=== PATIENT | male | born 1965 | race Two or more races ===

== ENCOUNTER 2017-02-21 09:33 | Inpatient (IN) | payer OTHER ==
[2017-02-21 11:07] VITALS: BMI 20.5
--- NOTE | 2017-02-21 13:32 | HP ---
COWS - Scale Resting Pulse: 0= [place] 80 or Below Sweatin= Chills/Flushing Restless Observation: 1= Difficult to Sit Still Pupil Size: 1= Pupils >than Normal Bone or Joint Aches: 1= Mild Discomfort Runny Nose/ Eye Tearin= Runny Nose/Eyes GI Upset > 30mins: 2= Nausea/Diarrhea Tremor Observation: 2= Slight Tremor Visible Yawning Observation: 1= 1-2x During Session Anxiety or Irritability: 2=Irritable/Anxious Goose Flesh Skin: 0=Smooth Skin COWS Score: 13 CIWA Score - CIWA Score Nausea/Vomitin Muscle Tremors: 3 Anxiety: 4-Mod. Anxious/Guarded Agitation: 4-Moderately Restless Paroxysmal Sweats: 3 Orientation: 0-Oriented Tacttile Disturbances: 2-Mild Itch/Numbness/Burn Auditory Disturbances: 0-None Visual Disturbances: 0-None Headache: 3-Moderate CIWA-Ar Total Score: 21 Admission ROS BHS - HPI Chief Complaint: "I asm looking to clean my system and quit using drugs." Pt. is here to detox from Alcohol and Heroin. Allergies/Adverse Reactions: Allergies Allergy/AdvReac Type Severity Reaction Status Date / Time No Known Allergies Allergy Verified 02/21/17 12:50 History of Present Illness: Pt. is a 51 YO male here to Detox from alcohol and Heroin. Pt. has had 1 previous Detox admission at [facility] in the past. Pt. also uses Cocaine, Marijuana, and Xanax on a daily basis. Exam Limitations: No Limitations - Ebola screening Have you traveled outside of the country in the last 21 days: No Have you had contact with anyone from an Ebola affected area: No Have you been sick,other than usual withdrawal symptoms: No Do you have a fever: No - Review of Systems Constitutional: Chills, Diaphoresis, Fever, Loss of Appetite, Malaise, Night Sweats, Unintentional Wgt. Loss (Lost approx. 25 lbs. over the 2-3 months.) EENT: reports: Nose Congestion, Sinus Pressure, Other (Upper Denture.) Respiratory: reports: Cough, SOB with Exertion Cardiac: reports: No Symptoms Reported GI: reports: Nausea, Poor Appetite : reports: No Symptoms Reported Musculoskeletal: reports: Back Pain, Joint Pain, Joint Stiffness Integumentary: reports: No Symptoms Reported Neuro: reports: Headache, Tremors Endocrine: reports: No Symptoms Reported Hematology: reports: No Symptoms Reported Psychiatric: reports: Judgement Intact, Mood/Affect Appropiate, Orientated x3, Anxious, Depressed Other Systems: Reviewed and Negative Patient History - Patient Medical History Hx Anemia: No Hx Asthma: Yes (Pt is on MDI) Hx Chronic Obstructive Pulmonary Disease (COPD): No Hx Cancer: No Hx Cardiac Disorders: No Hx Congestive Heart Failure: No Hx Hypertension: No Hx Hypercholesterolemia: No Hx Pacemaker: No HX Cerebrovascular Accident: No Hx Seizures: No Hx Dementia: No Hx Diabetes: No Hx Gastrointestinal Disorders: No Hx Liver Disease: Yes (Hep C (Treated, approx. 2 years ago).) Hx Genitourinary Disorders: No Hx Sexually Transmitted Disorders: No Hx Renal Disease (ESRD): No Hx Thyroid Disease: No Hx Human Immunodeficiency Virus (HIV): No (Last Tested: within Last 6 months: NEGATIVE.) Hx Hepatitis C: Yes (Treated, Resoloved.) Hx Depression: Yes (On meds.) Hx Suicide Attempt: Yes (1994. PATIENT DENIES CURRENT SI / HI.) Hx Bipolar Disorder: No Hx Schizophrenia: Yes (Paranoid Type; On meds.) - Patient Surgical History Past Surgical History: No - PPD History Previous Implant?: Yes Documented Results: Negative w/o proof Implanted On Prior [facility] Admission?: No PPD to be Administered?: Yes - Reproductive History Patient is a Female of Child Bearing Age (11 -55 yrs old): No (PATIENT IS MALE.) - Smoking Cessation Smoking history: Current every day smoker Have you smoked in the past 12 months: Yes Aproximately how many cigarettes per day: 20 Cigars Per Day: 0 Hx Chewing Tobacco Use: No Initiated information on smoking cessation: Yes 'Breaking Loose' booklet given: 02/21/17 (GIVEN ON UNIT.) - Substance & Tx. History Hx Alcohol Use: Yes Hx Substance Use: Yes Substance Use Type: Alcohol, Cocaine, Heroin, Marijuana, Tranquilizers Hx Substance Use Treatment: Yes (1 Previous Detox Admission at [facility].) - Substances Abused Alprazolam (Xanax) Route: Oral Frequency: Daily Amount used: 6mg Age of first use: 25 Date of Last Use: 02/20/17 Alcohol Route: Oral Frequency: Daily Amount used: 3 qts beer Age of first use: 14 Date of Last Use: 02/20/17 Cocaine Route: Inhalation Frequency: Daily Amount used: $20 Age of first use: 18 Date of Last Use: 02/20/17 Marijuana/Hashish Route: Smoking Frequency: Daily Amount used: 1 bag Age of first use: 14 Date of Last Use: 02/20/17 Heroin Route: Inhalation Frequency: Daily Amount used: 1-3 Bags. Age of first use: 15 Date of Last Use: 02/21/17 Family Disease History - Family Disease History Family Disease History: Heart Disease: Father (: [place]: Mother ( .) Admission Physical Exam [facility] - Vital Signs Vital Signs: Vital Signs - 24 hr 02/21/17 10:55 Temperature 97.8 F Pulse Rate 62 Respiratory 18 Rate Blood Pressure 134/71 - Physical General Appearance: Yes: Nourished, Appropriately Dressed, Mild Distress, Tremorous, Anxious HEENTM: Yes: Hearing grossly Normal, Normocephalic, Normal Voice, YULISA, Pharynx Normal Respiratory: Yes: Chest Non-Tender, No Respiratory Distress, Wheezing Neck: Yes: No masses,lesions,Nodules, Supple, Trachea in good position Breast: Yes: Breast Exam Deferred Cardiology: Yes: Regular Rhythm, Regular Rate, S1, S2 Abdominal: Yes: Normal Bowel Sounds, Non Tender, Flat, Soft Genitourinary: Yes: Within Normal Limits Back: Yes: Decreased Range of Motion Musculoskeletal: Yes: Gait Steady, Joint Stiffness Extremities: Yes: Tremors Neurological: Yes: Fully Oriented, Alert, Normal Mood/Affect, Normal Response Integumentary: Yes: Normal Color, Dry, Warm Lymphatic: Yes: Within Normal Limits - Diagnostic (1) Alcohol dependence with uncomplicated withdrawal Current Visit: Yes Status: Acute (2) Opioid dependence with withdrawal Current Visit: Yes Status: Acute (3) Sedative, hypnotic or anxiolytic dependence with withdrawal, uncomplicated Current Visit: Yes Status: Acute (4) Cocaine dependence, uncomplicated Current Visit: Yes Status: Acute (5) Nicotine dependence Current Visit: Yes Status: Chronic Qualifiers: Nicotine product type: cigarettes Substance use status: uncomplicated Qualified Code(s): F17.210 - Nicotine dependence, cigarettes, uncomplicated (6) Asthma Current Visit: Yes Status: Chronic Qualifiers: Asthma severity: mild intermittent (7) Methadone maintenance therapy patient Current Visit: Yes Status: Chronic (8) Schizophrenia, paranoid type Current Visit: Yes Status: Chronic Cleared for Admission B[facility] - Detox or Rehab [facility] Level of Care: Medically Managed (ADVISED PATIENT TO FOLLOW-UP WITH EARLY CHILDHOOD / REHAB MEDICAL PROVIDER AFTER DISCAHRGE FROM DETOX FOR GENERAL MEDICAL ASSESSMENT.) Detox Regimen/Protocol: Methadone/Librium BHS Breath Alcohol Content Breath Alcohol Content: 0 Urine Drug Screen - Results Drug Screen Negative: No Urine Drug Screen Results: THC-Marijuana, MANDY-Cocaine, OPI-Opiates, BZO- Benzodiazepines, MTD-Methadone, TCA-Tricyclic Antidepress
[2017-02-21] MEDS ORDERED: IBUPROFEN 400 MG TABLET (FP) PO PRN (14:08)
[2017-02-21] MEDS ORDERED: LOPERAMIDE HCL 2 MG CAPSULE PO PRN (14:08)
[2017-02-21] MEDS ORDERED: guaiFENesin/D-METHORPHAN HB 10 ML UNIT-DOSE CUPS PO PRN (14:08)
[2017-02-21] MEDS ORDERED: P-EPHED 60MG/TRIPROLIDI 2.5MG TABLET PO PRN (14:08)
[2017-02-21] MEDS ORDERED: MAGNESIUM HYDROX 2400MG/30ML ORAL SUSPENSION 30 ML CUP PO PRN (14:08)
[2017-02-21] MEDS ORDERED: chlordiazePOXIDE HCL 25 MG CAPSULE PO PRN (14:08)
[2017-02-21] MEDS ORDERED: ACETAMINOPHEN 325 MG TABLET (FP) PO PRN (14:08)
[2017-02-21] MEDS ORDERED: MENTHOL/PHENOL 1 EACH UD MM PRN (14:08)
[2017-02-21] MEDS ORDERED: hydrOXYzine PAMOATE 50 MG CAPSULE (FP) PO PRN (14:08)
[2017-02-21] MEDS ORDERED: MAGNESIUM CITRATE 300 ML BOTTLE PO PRN (14:08)
[2017-02-21] MEDS ORDERED: MAG HYDROX/AL HYDROX/SIMETH 30 ML UNIT-DOSE CUP PO PRN (14:08)
[2017-02-21] MEDS ORDERED: NICOTINE POLACRILEX 2 MG GUM BUC PRN (14:08)
[2017-02-21] MEDS ORDERED: ALBUTEROL SO4 6.7 GM HFA INHALER IH PRN (14:15)
[2017-02-21] MEDS ORDERED: chlordiazePOXIDE HCL 25 MG CAPSULE PO ONE (14:16)
[2017-02-21] MEDS: NICOTINE 21 MG/24 HOURS TOPICAL PATCH TD SCH (14:52)
[2017-02-21] MEDS: chlordiazePOXIDE HCL 25 MG CAPSULE PO SCH ×2 (17:08→22:22)
--- NOTE | 2017-02-21 18:08 | CONSULT ---
[facility] Psychiatric Consult - Data Date of interview: 02/21/17 Admission source: [facility] Identifying data: Readmission to [facility] for this 51 y/o reyes seeking detox treatment for alcohol,heroin,marihuana,xanax and cocaine dependence.Patient is without children,domiciled,unemployed and supported on SSI benefits. Substance Abuse History: - Smoking Cessation. Smoking history: Current every day smoker. Have you smoked in the past 12 months: Yes. Aproximately how many cigarettes per day: 20. Cigars Per Day: 0. Hx Chewing Tobacco Use: No. Initiated information on smoking cessation: Yes. 'Breaking Loose' booklet given : 02/21/17 (GIVEN ON UNIT.). - Substance & Tx. History. Hx Alcohol Use: Yes. Hx Substance Use: Yes. Substance Use Type: Alcohol, Cocaine, Heroin, Marijuana , Tranquilizers. Hx Substance Use Treatment: Yes (1 Previous Detox Admission at [facility].). - Substances Abused. Alprazolam (Xanax). Route: Oral. Frequency: Daily. Amount used: 6mg. Age of first use: 25. Date of Last Use: 02/20/17. Alcohol. Route: Oral. Frequency: Daily. Amount used: 3 qts beer. Age of first use: 14. Date of Last Use: 02/20/17. Cocaine. Route: Inhalation. Frequency: Daily. Amount used: $20. Age of first use: 18. Date of Last Use: 02/20/17. Marijuana/Hashish. Route: Smoking. Frequency: Daily. Amount used: 1 bag. Age of first use: 14. Date of Last Use: 02/20/17. Heroin. Route: Inhalation. Frequency: Daily. Amount used: 1-3 Bags. Age of first use: 15. Date of Last Use: 02/21/17. Confirmed by patient. Medical History: Hepatitis C,bronchial asthma and hypertension. Psychiatric History: Patient admits to a history of multiple psychiatric hospitalizations.Known to [facility] and [facility].Diagnosed with Paranoid Schizophrenia.Mr Wolfe gets his OPD care at the [facility] health clinic in the [place].Medications consist of seroquel 200 mg/ hs + lexapro 10 mg/day.Patient is also on methadone maintenance (160 mg/day) at [facility].He reports a remote history of suicide attempt via deliberate ingestion of a foreign object (container of an asthma inhaler) during incarceration a few years ago. Physical/Sexual Abuse/Trauma History: Patient denies. Additional Comment: Urine Drug Screen Results: THC-Marijuana, MANDY-Cocaine, OPI- Opiates, BZO-Benzodiazepines, MTD-Methadone, TCA-Tricyclic Antidepressant.Noted. Mental Status Exam - Mental Status Exam Alert and Oriented to: Time, Place, Person Cognitive Function: Good Patient Appearance: Well Groomed Mood: Hopeful, Euthymic Affect: Appropriate, Normal Range Patient Behavior: Appropriate, Cooperative (friendly) Speech Pattern: Clear, Appropriate Voice Loudness: Normal Thought Process: Goal Oriented Thought Disorder: Not Present Hallucinations: Denies Suicidal Ideation: Denies Homicidal Ideation: Denies Insight/Judgement: Poor Sleep: Poorly, Difficulty falling asleep Appetite: Good Muscle strength/Tone: Normal Gait/Station: Normal Psychiatric Findings - Problem List ([place] 1, 2,3) (1) Alcohol dependence with uncomplicated withdrawal Current Visit: Yes Status: Acute (2) Cocaine dependence, uncomplicated Current Visit: Yes Status: Acute (3) Opioid dependence with withdrawal Current Visit: Yes Status: Acute (4) Sedative, hypnotic or anxiolytic dependence with withdrawal, uncomplicated Current Visit: Yes Status: Acute (5) Methadone maintenance therapy patient Current Visit: Yes Status: Acute (6) Nicotine dependence Current Visit: Yes Status: Acute Qualifiers: Nicotine product type: cigarettes Substance use status: uncomplicated Qualified Code(s): F17.210 - Nicotine dependence, cigarettes, uncomplicated (7) Schizophrenia, paranoid type Current Visit: Yes Status: Chronic (8) Asthma Current Visit: Yes Status: Chronic Qualifiers: Asthma severity: mild intermittent (9) Insomnia Current Visit: Yes Status: Acute - Initial Treatment Plan Initial Treatment Plan: Psychoeducation.Detoxification.Medications : seroquel 200 mg po hs + lexapro 10 mg po daily.Side effects/benefits discussed with the patient.He agrees with this plan of care.Observation.
[2017-02-21 20:02] LABS: URINE APPEARANCE CLEAR; URINE BILIRUBIN NEGATIVE (NEGATIVE); URINE BLOOD NEGATIVE (NEGATIVE); URINE COLOR YELLOW; URINE GLUCOSE (UA) NEGATIVE (NEGATIVE); URINE KETONE TRACE (NEGATIVE); URINE LEUK ESTERASE NEGATIVE (NEGATIVE); URINE NITRITE NEGATIVE (NEGATIVE); URINE PROTEIN NEGATIVE (NEGATIVE); URINE UROBILINOGEN NEGATIVE E.U./dl (0.2-1.0)
--- NOTE | 2017-02-21 20:50 | PN ---
BHS Progress Note Note: RECEIVED NURSE INFORMED REQUESTS ENSURE BMI 20.5 ENSURE 120 ML BID CONTINUE DETOX
[2017-02-21] MEDS ORDERED: QUEtiapine FUMARATE 200 MG TABLET PO SCH (22:00)
[2017-02-21] MEDS: THIAMINE HCL 100 MG TABLET (FP) PO SCH (22:22)
[2017-02-22] MEDS: chlordiazePOXIDE HCL 25 MG CAPSULE PO SCH ×4 (05:26→22:26)
[2017-02-22] MEDS: METHADONE HCL 40 MG DISPERSABLE TABLET PO SCH (05:26)
[2017-02-22] MEDS: ESCITALOPRAM OXALATE 10 MG TABLET (FP) PO SCH (10:28)
[2017-02-22] MEDS: NICOTINE 21 MG/24 HOURS TOPICAL PATCH TD SCH (10:28)
[2017-02-22] MEDS: PRENATAL VITAMINS W/ FOLIC ACID TABLET (FP) PO SCH (10:28)
[2017-02-22 10:33] LABS: MCH 28.8 pg (25.7-33.7); MCHC 32.1 g/dl (32.0-35.9); MEAN CELL VOLUME 89.5 fl (80-96); MEAN PLT VOLUME 9.7 fl (7.5-11.1); PLATELET COUNT 168 K/MM3 (134-434); RDW 14.3 % (11.9-15.9); WHITE BLOOD COUNT 6.4 K/mm3 (4.0-10.0)
[2017-02-22 11:03] LABS: ALK PHOS 52 U/L (45-117); ANION GAP 6 (8-16); BILIRUBIN,TOTAL 0.2 mg/dL (0.2-1.0); CO2 31 mmol/L (21-32); GLUCOSE,RANDOM 117 mg/dL (74-106); SGOT/AST 25 U/L (15-37); SGPT/ALT 17 U/L (12-78); TOT PROT 7.7 g/dl (6.4-8.2)
--- NOTE | 2017-02-22 13:36 | PN ---
S CIWA - CIWA Score Nausea/Vomitin-No Nausea/No Vomiting Muscle Tremors: 4-Moderate,w/Arms Extend Anxiety: 3 Agitation: 4-Moderately Restless Paroxysmal Sweats: 3 Orientation: 0-Oriented Tacttile Disturbances: 0-None Auditory Disturbances: 0-None Visual Disturbances: 0-None Headache: 0-None Present CIWA-Ar Total Score: 14 BHS Progress Note (SOAP) Subjective: Anxiety,tremors,sweating,interrupted sleep,restless Objective: 02/22/17 13:35 Vital Signs - 8 hr 02/22/17 02/22/17 06:19 09:28 Temperature 95.7 F L 98.2 F Pulse Rate 57 L 76 Respiratory 16 18 Rate Blood Pressure 91/59 93/56 Laboratory Tests 02/21/17 02/22/17 02/22/17 19:45 06:20 06:20 WBC 6.4 RBC 3.98 L Hgb 11.4 L Hct 35.6 MCV 89.5 MCHC 32.1 RDW 14.3 Plt Count 168 MPV 9.7 Sodium 139 Potassium 4.1 Chloride 102 Carbon Dioxide 31 Anion Gap 6 L BUN 16 Creatinine 1.0 Creat Clearance w eGFR > 60 Random Glucose 117 H Calcium 9.0 Total Bilirubin 0.2 AST 25 ALT 17 Alkaline Phosphatase 52 Total Protein 7.7 Albumin 4.0 Urine Color Yellow Urine Appearance Clear Urine pH 5.0 Ur Specific [place] 1.024 Urine Protein Negative Urine Glucose (UA) Negative Urine Ketones Trace H Urine Blood Negative Urine Nitrite Negative Urine Bilirubin Negative Urine Urobilinogen Negative Ur Leukocyte Esterase Negative labs noted Assessment: 02/22/17 13:35 Withdrawal sx. Plan: Continue detox
[2017-02-22] MEDS: THIAMINE HCL 100 MG TABLET (FP) PO SCH (22:26)
[2017-02-23] MEDS: METHADONE HCL 40 MG DISPERSABLE TABLET PO SCH (05:18)
[2017-02-23] MEDS: chlordiazePOXIDE HCL 25 MG CAPSULE PO SCH ×2 (05:18→10:19)
[2017-02-23] MEDS: PRENATAL VITAMINS W/ FOLIC ACID TABLET (FP) PO SCH (10:17)
[2017-02-23] MEDS: NICOTINE 21 MG/24 HOURS TOPICAL PATCH TD SCH (10:17)
[2017-02-23] MEDS: ESCITALOPRAM OXALATE 10 MG TABLET (FP) PO SCH (10:17)
--- NOTE | 2017-02-23 11:06 | PN ---
S CIWA - CIWA Score Nausea/Vomitin-No Nausea/No Vomiting Muscle Tremors: 3 Anxiety: 4-Mod. Anxious/Guarded Agitation: 4-Moderately Restless Paroxysmal Sweats: 3 Orientation: 0-Oriented Tacttile Disturbances: 0-None Auditory Disturbances: 0-None Visual Disturbances: 0-None Headache: 0-None Present CIWA-Ar Total Score: 14 BHS Progress Note (SOAP) Subjective: Anxiety,tremors,sweating,interrupted sleep,restless Objective: 02/23/17 11:05 Vital Signs - 8 hr 02/23/17 02/23/17 06:24 09:35 Temperature 95.8 F L 98.2 F Pulse Rate 59 L 68 Respiratory 16 16 Rate Blood Pressure 98/60 99/60 Laboratory Tests 02/21/17 02/22/17 02/22/17 19:45 06:20 06:20 WBC 6.4 RBC 3.98 L Hgb 11.4 L Hct 35.6 MCV 89.5 MCHC 32.1 RDW 14.3 Plt Count 168 MPV 9.7 Sodium 139 Potassium 4.1 Chloride 102 Carbon Dioxide 31 Anion Gap 6 L BUN 16 Creatinine 1.0 Creat Clearance w eGFR > 60 Random Glucose 117 H Calcium 9.0 Total Bilirubin 0.2 AST 25 ALT 17 Alkaline Phosphatase 52 Total Protein 7.7 Albumin 4.0 Urine Color Yellow Urine Appearance Clear Urine pH 5.0 Ur Specific [place] 1.024 Urine Protein Negative Urine Glucose (UA) Negative Urine Ketones Trace H Urine Blood Negative Urine Nitrite Negative Urine Bilirubin Negative Urine Urobilinogen Negative Ur Leukocyte Esterase Negative RPR Titer 02/22/17 06:20 WBC RBC Hgb Hct MCV MCHC RDW Plt Count MPV Sodium Potassium Chloride Carbon Dioxide Anion Gap BUN Creatinine Creat Clearance w eGFR Random Glucose Calcium Total Bilirubin AST ALT Alkaline Phosphatase Total Protein Albumin Urine Color Urine Appearance Urine pH Ur Specific [place] Urine Protein Urine Glucose (UA) Urine Ketones Urine Blood Urine Nitrite Urine Bilirubin Urine Urobilinogen Ur Leukocyte Esterase RPR Titer Nonreactive labs noted Assessment: 02/23/17 11:05 Withdrawal sx. Plan: Continue detox
[2017-02-23] MEDS: chlordiazePOXIDE 5 MG CAPSULE PO SCH ×2 (17:23→22:22)
[2017-02-23] MEDS: THIAMINE HCL 100 MG TABLET (FP) PO SCH (22:22)
[2017-02-23] MEDS: diphenhydrAMINE HCL 50 MG CAPSULE PO PRN (22:23)
[2017-02-24] MEDS: chlordiazePOXIDE 5 MG CAPSULE PO SCH ×2 (04:57→10:13)
[2017-02-24] MEDS: METHADONE HCL 40 MG DISPERSABLE TABLET PO SCH (05:00)
[2017-02-24] MEDS: PRENATAL VITAMINS W/ FOLIC ACID TABLET (FP) PO SCH (10:12)
[2017-02-24] MEDS: ESCITALOPRAM OXALATE 10 MG TABLET (FP) PO SCH (10:12)
[2017-02-24] MEDS: NICOTINE 21 MG/24 HOURS TOPICAL PATCH TD SCH (10:13)
--- NOTE | 2017-02-24 12:43 | EKG ---
Test Reason : Blood Pressure : / mmHG Vent. Rate : 062 BPM Atrial Rate : 062 BPM P-R Int : 192 ms QRS Dur : 100 ms QT Int : 432 ms P-R-T Axes : 068 070 062 degrees QTc Int : 438 ms NORMAL SINUS RHYTHM NORMAL ECG NO PREVIOUS ECGS AVAILABLE Confirmed by SHA MONTILLA MD ([id number]) on 02/24/2017 12:42:53 PM Referred By: Confirmed By:SHA MONTILLA MD
--- NOTE | 2017-02-24 13:27 | PN ---
BHS Progress Note (SOAP) Subjective: Sweating,interrupted sleep,restless Objective: 02/24/17 13:26 Vital Signs - 8 hr 02/24/17 02/24/17 06:13 10:24 Temperature 97.7 F 98.2 F Pulse Rate 62 69 Respiratory 18 18 Rate Blood Pressure 98/60 116/63 Laboratory Last Values WBC 6.4 K/mm3 (4.0-10.0) 02/22/17 06:20 RBC 3.98 M/mm3 (4.00-5.60) L 02/22/17 06:20 Hgb 11.4 GM/dL (11.7-16.9) L 02/22/17 06:20 Hct 35.6 % (35.4-49) 02/22/17 06:20 MCV 89.5 fl (80-96) 02/22/17 06:20 MCHC 32.1 g/dl (32.0-35.9) 02/22/17 06:20 RDW 14.3 % (11.9-15.9) 02/22/17 06:20 Plt Count 168 K/MM3 (134-434) 02/22/17 06:20 MPV 9.7 fl (7.5-11.1) 02/22/17 06:20 Sodium 139 mmol/L (136-145) 02/22/17 06:20 Potassium 4.1 mmol/L (3.5-5.1) 02/22/17 06:20 Chloride 102 mmol/L (98-107) 02/22/17 06:20 Carbon Dioxide 31 mmol/L (21-32) 02/22/17 06:20 Anion Gap 6 (8-16) L 02/22/17 06:20 BUN 16 mg/dL (7-18) 02/22/17 06:20 Creatinine 1.0 mg/dL (0.7-1.3) 02/22/17 06:20 Creat Clearance w eGFR > 60 (>60) 02/22/17 06:20 Random Glucose 117 mg/dL (74-106) H 02/22/17 06:20 Calcium 9.0 mg/dL (8.5-10.1) 02/22/17 06:20 Total Bilirubin 0.2 mg/dL (0.2-1.0) 02/22/17 06:20 AST 25 U/L (15-37) 02/22/17 06:20 ALT 17 U/L (12-78) 02/22/17 06:20 Alkaline Phosphatase 52 U/L (45-117) 02/22/17 06:20 Total Protein 7.7 g/dl (6.4-8.2) 02/22/17 06:20 Albumin 4.0 g/dl (3.4-5.0) 02/22/17 06:20 Urine Color Yellow 02/21/17 19:45 Urine Appearance Clear 02/21/17 19:45 Urine pH 5.0 (5.0-8.0) 02/21/17 19:45 Ur Specific [place] 1.024 (1.001-1.035) 02/21/17 19:45 Urine Protein Negative (NEGATIVE) 02/21/17 19:45 Urine Glucose (UA) Negative (NEGATIVE) 02/21/17 19:45 Urine Ketones Trace (NEGATIVE) H 02/21/17 19:45 Urine Blood Negative (NEGATIVE) 02/21/17 19:45 Urine Nitrite Negative (NEGATIVE) 02/21/17 19:45 Urine Bilirubin Negative (NEGATIVE) 02/21/17 19:45 Urine Urobilinogen Negative E.U./dl (0.2-1.0) 02/21/17 19:45 Ur Leukocyte Esterase Negative (NEGATIVE) 02/21/17 19:45 RPR Titer Nonreactive (NONREACTIVE) 02/22/17 06:20 labs noted Assessment: 02/24/17 13:27 Withdrawal sx. Plan: Continue detox
[2017-02-24] MEDS: chlordiazePOXIDE HCL 10 MG CAPSULE PO SCH ×2 (17:15→22:13)
[2017-02-24] MEDS: diphenhydrAMINE HCL 50 MG CAPSULE PO PRN (22:13)
[2017-02-24] MEDS: THIAMINE HCL 100 MG TABLET (FP) PO SCH (22:13)
[2017-02-25] MEDS: METHADONE HCL 40 MG DISPERSABLE TABLET PO SCH (05:06)
[2017-02-25] MEDS: chlordiazePOXIDE HCL 10 MG CAPSULE PO SCH (05:06)
[2017-02-25 06:01] VITALS: BP 109/59; PULSE 63; TEMP 97.4
--- NOTE | 2017-02-25 10:50 | DS ---
[facility] Detox Discharge Summary Admission Date: 02/21/17 Discharge Date: 02/25/17 - History Present History: Alcohol Dependence, Cocaine Dependence, Sedative Dependence, MMTP Pertinent Past History: Asthma - Physical Exam Results Vital Signs: Vital Signs Temperature 97.4 F L 02/25/17 05:59 Pulse Rate 63 02/25/17 05:59 Respiratory Rate 18 02/25/17 05:59 Blood Pressure 109/59 02/25/17 05:59 O2 Sat by Pulse Oximetry (%) Pertinent Admission Physical Exam Findings: Withdrawal sx. Laboratory Last Values WBC 6.4 K/mm3 (4.0-10.0) 02/22/17 06:20 RBC 3.98 M/mm3 (4.00-5.60) L 02/22/17 06:20 Hgb 11.4 GM/dL (11.7-16.9) L 02/22/17 06:20 Hct 35.6 % (35.4-49) 02/22/17 06:20 MCV 89.5 fl (80-96) 02/22/17 06:20 MCHC 32.1 g/dl (32.0-35.9) 02/22/17 06:20 RDW 14.3 % (11.9-15.9) 02/22/17 06:20 Plt Count 168 K/MM3 (134-434) 02/22/17 06:20 MPV 9.7 fl (7.5-11.1) 02/22/17 06:20 Sodium 139 mmol/L (136-145) 02/22/17 06:20 Potassium 4.1 mmol/L (3.5-5.1) 02/22/17 06:20 Chloride 102 mmol/L (98-107) 02/22/17 06:20 Carbon Dioxide 31 mmol/L (21-32) 02/22/17 06:20 Anion Gap 6 (8-16) L 02/22/17 06:20 BUN 16 mg/dL (7-18) 02/22/17 06:20 Creatinine 1.0 mg/dL (0.7-1.3) 02/22/17 06:20 Creat Clearance w eGFR > 60 (>60) 02/22/17 06:20 Random Glucose 117 mg/dL (74-106) H 02/22/17 06:20 Calcium 9.0 mg/dL (8.5-10.1) 02/22/17 06:20 Total Bilirubin 0.2 mg/dL (0.2-1.0) 02/22/17 06:20 AST 25 U/L (15-37) 02/22/17 06:20 ALT 17 U/L (12-78) 02/22/17 06:20 Alkaline Phosphatase 52 U/L (45-117) 02/22/17 06:20 Total Protein 7.7 g/dl (6.4-8.2) 02/22/17 06:20 Albumin 4.0 g/dl (3.4-5.0) 02/22/17 06:20 Urine Color Yellow 02/21/17 19:45 Urine Appearance Clear 02/21/17 19:45 Urine pH 5.0 (5.0-8.0) 02/21/17 19:45 Ur Specific [place] 1.024 (1.001-1.035) 02/21/17 19:45 Urine Protein Negative (NEGATIVE) 02/21/17 19:45 Urine Glucose (UA) Negative (NEGATIVE) 02/21/17 19:45 Urine Ketones Trace (NEGATIVE) H 02/21/17 19:45 Urine Blood Negative (NEGATIVE) 02/21/17 19:45 Urine Nitrite Negative (NEGATIVE) 02/21/17 19:45 Urine Bilirubin Negative (NEGATIVE) 02/21/17 19:45 Urine Urobilinogen Negative E.U./dl (0.2-1.0) 02/21/17 19:45 Ur Leukocyte Esterase Negative (NEGATIVE) 02/21/17 19:45 RPR Titer Nonreactive (NONREACTIVE) 02/22/17 06:20 labs noted - Treatment Hospital Course: Detox Protocol Followed, Detoxed Safely, Responded well, Discharged Condition Good, Rehab Referral Accepted Patient has Accepted a Rehab Referral to: [facility] - Medication Discharge Medications: Ambulatory Orders Albuterol Sulfate Inhaler - [Ventolin Hfa Inhaler -] 2 inh PO Q4H PRN 02/21/17 Escitalopram Oxalate [Lexapro -] 10 mg PO DAILY 02/21/17 Escitalopram Oxalate [Lexapro -] 10 mg PO DAILY #30 tablet 02/21/17 Quetiapine Fumarate [Seroquel -] 200 mg PO HS 02/21/17 Quetiapine Fumarate [Seroquel -] 200 mg PO HS #30 tab 02/21/17 - Diagnosis (1) Alcohol dependence with uncomplicated withdrawal Status: Acute (2) Cocaine dependence, uncomplicated Status: Acute (3) Methadone maintenance therapy patient Status: Acute (4) Nicotine dependence Status: Acute Qualifiers: Nicotine product type: cigarettes Substance use status: uncomplicated Qualified Code(s): F17.210 - Nicotine dependence, cigarettes, uncomplicated (5) Sedative, hypnotic or anxiolytic dependence with withdrawal, uncomplicated Status: Acute (6) Asthma Status: Chronic Qualifiers: Asthma severity: mild intermittent (7) Schizophrenia, paranoid type Status: Chronic - AMA Did Patient Leave Against Medical Advice: No
== END 2017-02-25 09:03 | disposition home or self-care (01) | DRG 773 ==
LOC: YASAS 09:33 → Y3N 13:46
PROVIDERS: ADMIT Internal Medicine; ATTEND Internal Medicine
PROC: HZ2ZZZZ Detoxification Services for Substance Abuse Treatment (ICD-10-PCS; principal; 2017-02-25)
DX: F11.23 Opioid dependence with withdrawal (principal); F13.230 Sedative, hypnotic or anxiolytic dependence with withdrawal, uncomplicated; F10.230 Alcohol dependence with withdrawal, uncomplicated; F14.20 Cocaine dependence, uncomplicated; F17.210 Nicotine dependence, cigarettes, uncomplicated; J45.20 Mild intermittent asthma, uncomplicated; F20.0 Paranoid schizophrenia; G47.00 Insomnia, unspecified
CPT/HCPCS: 36415; 80053; 81003; 85027; 86593; 93005; 93010